=== PATIENT | female | born 1995 | race Caucasian/White ===

== ENCOUNTER 2018-05-21 18:36 | Emergency (ER) | payer SELFPAY ==
[~2018-05-21] VITALS: Ht 160 cm; Wt 73.0 kg
[2018-05-21 18:49] VITALS: BP 97/57
[2018-05-21] MEDS ORDERED: ACETAMINOPHEN 325MG TABLET ONE (19:03)
== END 2018-05-21 23:00 | disposition left against medical advice (07) ==
LOC: ER 18:36
DX: Z53.21 Procedure and treatment not carried out due to patient leaving prior to being seen by health care provider (principal)

== ENCOUNTER 2021-06-15 11:57 | Emergency (ER) | payer MEDICAID ==
[~2021-06-15] VITALS: Ht 165.1 cm; Wt 85.0 kg
[2021-06-15] MEDS ORDERED: DOXYCYCLINE HYCLATE 100MG CAPSULE PO ONE (12:30)
[2021-06-15] MEDS ORDERED: CEFTRIAXONE SODIUM 500 MG/VIAL IM ONE (12:30)
[2021-06-15 14:08] LABS: CLARITY URINE CLOUDY (CLEAR); COLOR URINE YELLOW (YELLOW); KETONES URINE TRACE (NEGATIVE); LEUKOCYTE ESTERASE URINE 2+ (NEGATIVE); NITRITE URINE NEGATIVE (NEGATIVE); OCCULT BLOOD URINE NEGATIVE (NEGATIVE); PROTEIN URINE NEGATIVE (NEGATIVE); SPECIFIC GRAVITY URINE 1.024 (1.005-1.030)
[2021-06-15] MEDS ORDERED: DOXY100T28 MT (14:43)
[2021-06-15] MEDS ORDERED: METR500T MT (14:43)
[2021-06-15 14:57] VITALS: BP 108/56
[2021-06-17 19:06] LABS: NEISSERIA GONORRHOEAE NAA Negative (Negative)
== END 2021-06-15 15:01 | disposition home or self-care (01) ==
LOC: ER 11:57
DX: T81.49XA Infection following a procedure, other surgical site, initial encounter (principal); N76.0 Acute vaginitis; B96.89 Other specified bacterial agents as the cause of diseases classified elsewhere
CPT/HCPCS: 10060; 81003; 87210; 87491; 87591; 96372; 99284; J0696; Z7610

== ENCOUNTER 2023-01-27 22:30 | Emergency (ER) | payer MEDICAID ==
[~2023-01-27] VITALS: Ht 162.6 cm; Wt 75.7 kg
[~2023-01-27 22:30] MED LIST: DOXY100T28 MT; METR500T MT
[2023-01-27 23:08] VITALS: O2SAT 100
[2023-01-27] MEDS ORDERED: IBUP-2029 MT (23:51)
[2023-01-28] MEDS ORDERED: IBUPROFEN 600MG TABLET PO ONE
[2023-01-28 00:19] VITALS: BP 108/67
[2023-01-28 00:31] VITALS: PULSE 81; RESP 18; TEMP 98.8
== END 2023-01-28 00:32 | disposition home or self-care (01) ==
LOC: ER 22:30
DX: R68.84 Jaw pain (principal); K08.89 Other specified disorders of teeth and supporting structures
CPT/HCPCS: 81025; 99282

== ENCOUNTER 2023-03-07 07:45 | Emergency (ER) | payer MEDICAID ==
[~2023-03-07] VITALS: Ht 167.6 cm; Wt 75.0 kg
[~2023-03-07 07:45] MED LIST changes: +IBUP-2029 MT
[2023-03-07 07:50] VITALS: BP 120/45; O2SAT 96
[2023-03-07 08:41] LABS: CLARITY URINE CLOUDY (CLEAR); COLOR URINE YELLOW (YELLOW); GLUCOSE URINE NEGATIVE (NEGATIVE); KETONES URINE NEGATIVE (NEGATIVE); LEUKOCYTE ESTERASE URINE NEGATIVE (NEGATIVE); NITRITE URINE NEGATIVE (NEGATIVE); OCCULT BLOOD URINE NEGATIVE (NEGATIVE); PH URINE 6.5 (4.5-8.0); PROTEIN URINE NEGATIVE (NEGATIVE); SPECIFIC GRAVITY URINE 1.021 (1.005-1.030)
[2023-03-07] MEDS ORDERED: FLUCONAZOLE 150MG TABLET PO ONE (09:00)
[2023-03-07] MEDS ORDERED: METRONIDAZOLE 500MG TABLET PO ONE (09:00)
[2023-03-07] MEDS ORDERED: DOXYCYCLINE HYCLATE 100MG CAPSULE PO ONE (09:00)
[2023-03-07] MEDS ORDERED: CEFTRIAXONE SODIUM 500 MG/VIAL IM ONE (09:00)
[2023-03-07] MEDS ORDERED: DOXY100T28 MT (09:11)
[2023-03-07] MEDS ORDERED: METR-167 MT (09:11)
[2023-03-07 09:14] LABS: SQUAMOUS EPITHELIAL CELL URINE 3+ /lpf (RARE/1+)
[2023-03-07 09:15] LABS: BACTERIA URINE 2+; RBC URINE NONE SEEN /hpf (0-2); WBC URINE 0-2 /hpf (0-2)
[2023-03-07 09:16] LABS: BASOPHILS % 0.7 % (0.0-2.0); EOSINOPHILS % 3.7 % (0.0-5.0); HEMATOCRIT. 37.6 % (36.0-48.0); HEMOGLOBIN. 12.1 g/dL (12.0-16.0); LYMPHOCYTES % 35.6 % (20.0-50.0); MEAN CORPUSCULAR HGB CONC 32.3 g/dL (31.0-37.0); MEAN CORPUSCULAR VOLUME 83.6 fL (81.0-99.0); MEAN PLATELET VOLUME 9.1 fl (7.4-10.4); MONOCYTES % 8.2 % (2.0-8.0); NEUTROPHILS % 51.8 % (40.0-76.0); PLATELET 274 x1000/uL (130-400); RED CELL DISTRIBUTION WIDTH 15.2 % (11.6-14.6); WHITE BLOOD COUNT 8.9 x1000/uL (4.5-11.0)
[2023-03-07 09:18] VITALS: PULSE 75; RESP 18; TEMP 98
[2023-03-07 09:25] LABS: CHLORIDE 108 mEq/L (98-107); INDEX HEMOLYSI 1 (1-3); INDEX ICTERIC 1 (1-4); INDEX LIPEMIC 1 (1-3); POTASSIUM 3.8 mEq/L (3.5-5.1); SODIUM 142 mEq/L (136-145)
[2023-03-07 09:28] LABS: HCG SCREEN NEGATIVE
[2023-03-07 09:34] LABS: ALANINE AMINOTRANSFERASE 18 IU/L (13-61); ALBUMIN 4.3 g/dL (3.4-5.0); ASPARTATE AMINOTRANSFERASE 8 IU/L (15-37); BILIRUBIN TOTAL 0.4 mg/dL (0.1-1.0); CALCIUM 9.7 mg/dL (8.5-10.1); CARBON DIOXIDE 30 mEq/L (21-32); CREATININE 0.7 mg/dL (0.6-1.3); GLUCOSE 93 mg/dL (70-105); PROTEIN TOTAL 8.3 g/dL (6.0-8.3); UREA NITROGEN BLOOD 11 mg/dL (7-21)
== END 2023-03-07 09:32 | disposition home or self-care (01) ==
LOC: ER 07:45
DX: R30.0 Dysuria (principal)
CPT/HCPCS: 80053; 81003; 81025; 84703; 85025; 86592; 86593; 36415; 96372; 99284; 86780; J0696; Z7610

== ENCOUNTER 2023-04-11 01:19 | Emergency (ER) | payer MEDICAID ==
[~2023-04-11] VITALS: Ht 162.6 cm; Wt 73.0 kg
[~2023-04-11 01:19] MED LIST changes: +METR-167 MT
[2023-04-11 01:23] VITALS: BP 109/59
[2023-04-11 01:24] VITALS: O2SAT 100
[2023-04-11] MEDS ORDERED: FLUORESCEIN SODIUM 1MG/STRIP LEFTEYE ONE (02:30)
[2023-04-11] MEDS ORDERED: CEFTRIAXONE SODIUM 500 MG/VIAL IM ONE (03:00)
[2023-04-11] MEDS ORDERED: DOXY150T5 PO (03:01)
[2023-04-11] MEDS ORDERED: FLUC200T PO (03:02)
[2023-04-11] MEDS ORDERED: POLY15DR31 OP (03:03)
[2023-04-11 03:12] LABS: CLARITY URINE CLOUDY (CLEAR); COLOR URINE YELLOW (YELLOW); GLUCOSE URINE NEGATIVE (NEGATIVE); KETONES URINE NEGATIVE (NEGATIVE); LEUKOCYTE ESTERASE URINE 1+ (NEGATIVE); NITRITE URINE NEGATIVE (NEGATIVE); OCCULT BLOOD URINE NEGATIVE (NEGATIVE); PH URINE 5.5 (4.5-8.0); PROTEIN URINE NEGATIVE (NEGATIVE); SPECIFIC GRAVITY URINE 1.026 (1.005-1.030)
[2023-04-11] MEDS ORDERED: NITR-87 PO (03:19)
[2023-04-11 03:29] VITALS: PULSE 80; RESP 20; TEMP 98.8
[2023-04-11 03:35] LABS: BACTERIA URINE TRACE; RBC URINE 0-2 /hpf (0-2); SQUAMOUS EPITHELIAL CELL URINE RARE /lpf (RARE/1+)
== END 2023-04-11 03:30 | disposition home or self-care (01) ==
LOC: ER 01:19
DX: R30.0 Dysuria (principal); N89.8 Other specified noninflammatory disorders of vagina; Z79.899 Other long term (current) drug therapy
CPT/HCPCS: 81003; 81025; 96372; 99283; J0696; Z7610

== ENCOUNTER 2023-07-03 23:22 | Emergency (ER) | payer MEDICAID ==
[~2023-07-03] VITALS: Ht 154.9 cm; Wt 75.0 kg
[~2023-07-03 23:22] MED LIST changes: +DOXY150T5 PO; +FLUC200T PO; +NITR-87 PO; +POLY15DR31 OP
[2023-07-03 23:44] VITALS: RESP 16; O2SAT 98
[2023-07-04 00:08] LABS: BASOPHILS % 1.1 % (0.0-2.0); EOSINOPHILS % 4.7 % (0.0-5.0); HEMATOCRIT. 36.7 % (36.0-48.0); LYMPHOCYTES % 46.9 % (20.0-50.0); MEAN CORPUSCULAR HEMOGLOBIN 27.3 pg (28.0-32.0); MEAN CORPUSCULAR HGB CONC 32.8 g/dL (31.0-37.0); MEAN CORPUSCULAR VOLUME 83.2 fL (81.0-99.0); MONOCYTES % 9.6 % (2.0-8.0); NEUTROPHILS % 37.7 % (40.0-76.0); PLATELET 255 x1000/uL (130-400); RED BLOOD CELL COUNT 4.41 mill/uL (4.2-5.4); WHITE BLOOD COUNT 7.9 x1000/uL (4.5-11.0)
[2023-07-04 00:52] LABS: ALANINE AMINOTRANSFERASE 31 IU/L (10-49); ALBUMIN 4.6 g/dL (3.2-4.8); ASPARTATE AMINOTRANSFERASE 31 IU/L (<34); BILIRUBIN TOTAL 0.5 mg/dL (0.1-1.0); CALCIUM 9.1 mg/dL (8.7-10.4); CARBON DIOXIDE 23 mEq/L (21-32); CHLORIDE 108 mEq/L (98-107); CREATININE 0.9 mg/dL (0.6-1.0); GLUCOSE 98 mg/dL (70-105); POTASSIUM 3.6 mEq/L (3.5-5.1); PROTEIN TOTAL 7.7 g/dL (6.0-8.3); SODIUM 140 mEq/L (136-145); UREA NITROGEN BLOOD 15 mg/dL (9-23)
[2023-07-04 01:09] LABS: CLARITY URINE CLEAR (CLEAR); COLOR URINE YELLOW (YELLOW); GLUCOSE URINE NEGATIVE (NEGATIVE); KETONES URINE NEGATIVE (NEGATIVE); LEUKOCYTE ESTERASE URINE NEGATIVE (NEGATIVE); NITRITE URINE NEGATIVE (NEGATIVE); OCCULT BLOOD URINE 1+ (NEGATIVE); PH URINE 5.5 (4.5-8.0); PROTEIN URINE NEGATIVE (NEGATIVE); SPECIFIC GRAVITY URINE 1.025 (1.005-1.030)
[2023-07-04] MEDS ORDERED: MAG-55 MT (01:26)
[2023-07-04] MEDS ORDERED: ACYC5CRE8 TP (01:27)
[2023-07-04 01:33] LABS: BACTERIA URINE TRACE; RBC URINE 0-2 /hpf (0-2); SQUAMOUS EPITHELIAL CELL URINE 1+ /lpf (RARE/1+); WBC URINE NONE SEEN /hpf (0-2)
[2023-07-04] MEDS: MAGNESIUM/ALUMINUM HYDROXIDE/SIMETHICONE 30ML UDC PO ONE (01:38)
[2023-07-04 01:59] VITALS: BP 102/59; PULSE 76; TEMP 98.2
== END 2023-07-04 02:00 | disposition home or self-care (01) ==
LOC: ER 23:22
DX: R10.13 Epigastric pain (principal); B00.89 Other herpesviral infection; Z79.899 Other long term (current) drug therapy
CPT/HCPCS: 36415; 80053; 81003; 81025; 85025; 99283

== ENCOUNTER 2023-08-09 01:41 | Emergency (ER) | payer MEDICAID ==
[~2023-08-09] VITALS: Ht 165.1 cm; Wt 80.6 kg
[~2023-08-09 01:41] MED LIST changes: +ACYC5CRE8 TP; +MAG-55 MT
[2023-08-09 01:59] VITALS: BP 114/64; PULSE 80; RESP 15; TEMP 97.9; O2SAT 99
[2023-08-09] MEDS: METOCLOPRAMIDE HCL 10MG TABLET PO ONE (03:30)
[2023-08-09] MEDS: ACETAMINOPHEN 325MG TABLET PO ONE (03:30)
[2023-08-09 04:11] LABS: CLARITY URINE CLEAR (CLEAR); COLOR URINE YELLOW (YELLOW); GLUCOSE URINE NEGATIVE (NEGATIVE); KETONES URINE NEGATIVE (NEGATIVE); LEUKOCYTE ESTERASE URINE NEGATIVE (NEGATIVE); NITRITE URINE NEGATIVE (NEGATIVE); OCCULT BLOOD URINE NEGATIVE (NEGATIVE); PROTEIN URINE NEGATIVE (NEGATIVE); SPECIFIC GRAVITY URINE 1.018 (1.005-1.030)
[2023-08-09] MEDS ORDERED: METO-293 MT (05:19)
[2023-08-09] MEDS ORDERED: ACET-2708 MT (05:19)
== END 2023-08-09 05:34 | disposition home or self-care (01) ==
LOC: ER 01:41
DX: G44.209 Tension-type headache, unspecified, not intractable (principal); Z00.00 Encounter for general adult medical examination without abnormal findings; Z79.899 Other long term (current) drug therapy
CPT/HCPCS: 81003; 81025; 87210; 99284; 87591; J8597; Z7610

== ENCOUNTER 2023-09-11 21:50 | Emergency (ER) | payer MEDICAID ==
[~2023-09-11] VITALS: Ht 162.6 cm; Wt 77.0 kg
[~2023-09-11 21:50] MED LIST changes: +ACET-2708 MT; +METO-293 MT
[2023-09-11 22:23] VITALS: BP 106/53; PULSE 77; RESP 16; TEMP 98.5; O2SAT 99
[2023-09-12] MEDS ORDERED: FLUC200T MT (00:21)
[2023-09-12] MEDS ORDERED: MICO14CR6 TP (00:21)
== END 2023-09-12 00:42 | disposition home or self-care (01) ==
LOC: ER 21:50
DX: N76.0 Acute vaginitis (principal)
CPT/HCPCS: 99283